=== PATIENT | female | born 2000 | race Caucasian/White ===

== ENCOUNTER 2023-11-16 11:22 | Emergency (ER) | payer OTHER, SELFPAY ==
[2023-11-16] VITALS (7 sets, daily range): BP systolic 99–142; BP diastolic 72–94; BMI 29.2
--- NOTE | 2023-11-16 12:02 | EDRN ---
this RN placed PIV and lola and sent lab work, pt placed on monitor in the hallway, Sp02 96%, HR 110, the pt states that she has heart palpitations and SOB while resting, no s/s of distress noted by this RN, the pt is resting in [place] 1 in stretcher
in the lowest position, side rails up x2, HOB elevated, this RN is frequently checking the pt
[2023-11-16 12:05] LABS: % Basophils 0.6 % (0-2); % Eosinophils 0.9 % (0-6); % Immature Granulocytes 0.3 % (0-0.5); % Lymphocytes 16.7 % (20.5-51.1); % Monocytes 7.5 % (1.7-9.3); Absolute Basophils 0.1 10^3/uL (0-0.2); Absolute Eosinophils 0.1 10^3/uL (0-0.7); Absolute Lymphocytes 1.4 10^3/uL (1.2-3.4); Absolute Monocytes 0.7 10^3/uL (0.1-0.6); Absolute Neutrophils 6.4 10^3/uL (1.4-6.5); Hematocrit 37.3 % (37.0-47.0); Hemoglobin 13.5 g/dL (12.0-16.0); Mean Corp Hgb Conc. 36.2 g/dL (33.0-37.0); Mean Corpuscular Hgb 30.1 pg (27.0-31.0); Mean Corpuscular Volume 83.1 fL (81.0-99.0); Mean Platelet Volume 8.9 fL (7.4-10.4); Nucleated Red Blood Cells % 0 %; Platelet Count 410 10^3/uL (130-400); Red Blood Cell Count 4.49 10^6/uL (4.20-5.40); Red Cell Dist. Width 12.3 % (11.5-14.5); White Blood Cell Count 8.6 10^3/uL (4.8-10.8)
[2023-11-16 12:47] LABS: ALT (SGPT) 36 U/L (0-35); AST (SGOT) 37 U/L (14-36); Albumin 4.6 g/dl (3.5-5.0); Alkaline Phosphatase 89 U/L (38-126); Blood Urea Nitrogen 5 mg/dl (7-17); Calcium 9.5 mg/dl (8.4-10.2); Carbon Dioxide 27 mmol/L (22-30); Chloride 102 mmol/L (98-107); Estimated Creatinine Clearance 108 ml/min; Glucose 97 mg/dl (70-99); Potassium 4.2 mmol/L (3.5-5.1); Sodium 136 mmol/L (135-145); Total Bilirubin 0.5 mg/dl (0.2-1.3); Total Protein 7.6 g/dl (6.3-8.2); eGFR > 60.00
[2023-11-16 12:58] LABS: Troponin I < 0.012 ng/ml
--- NOTE | 2023-11-16 13:18 | EDRN ---
verbal report given to Cathy RN, pt placed on monitor, VS WNL, the pt reports 'I see stars and don't feel very well', this RN notified Marie Pinto MARKET DEVELOPMENT MANAGER
[2023-11-16 13:44] LABS: HCG, Serum Qualitative Screen Negative
--- NOTE | 2023-11-16 14:05 | ED.GENMED ---
History of Present Illness
General
Chief Complaint: Abnormal Lab Value
Source: patient
Exam Limitations: none
Time Seen by Provider: 11/16/23 12:02
Nursing documentation reviewed up to this point in time: agreed with
Travel History
Have you had any contact with someone who has COVID-19?: No
Do you have any symptoms of coronavirus? Fever > 100 degrees, chills, cough, shortness of breath, sore throat, loss of taste or smell, muscle aches, or headache?: Yes
Symptoms:: shortness of breath
History of Present Illness
History of Present Illness:
23-year-old female who trip to [place] on 11/07 and back on 11/12. During that period, she developed a sore throat, cough which was productive, runny nose and shortness of breath. Presents stating the left side chest feels 'tight.'
She saw her PCP, NIURKA Healy earlier today, blood work was ordered and he called her back to notify her that her D-dimer was elevated.
Currently she has mild chest tightness, has been SOB with exertion, She has hx asthma and has used her nebulizer and Albuterol inhaler with not much relief.
She does take oral contraceptives.
Past History
Past History
ED Past Medical History: Asthma, GERD, Hypercholesterolemia, Psychiatric (Anxiety) and Other (Lactose intolerant, seasonal allergies, Ovarian cyst, UTI, Concussion, Pre-Cancerous polyps)
ED Past Surgical History: Tonsilectomy (and adenoids, ) and Other (Breast reduction)
Social History
Tobacco: Non-smoker
Alcohol: Occasional
Drug: None
Personal: Single
Living: with family
Employment: Student
Family History
Family History: Other (No history of inflammatory bowel disease)
Review of Systems
Review of Systems
Allergies reviewed?: Yes
All Other Systems: ROS reviewed and negative except as documented in HPI and ROS
Constitutional: Denies fever
Respiratory: Reports trouble breathing
Cardiac: Reports chest pain; Denies diaphoresis, palpitations or syncope
ABD/GI: Denies abdominal pain, nausea, vomiting or diarrhea
: Denies dysuria, frequency or difficulty voiding
Musculoskeletal: Reports no symptoms
Skin: Reports no symptoms
Neurological: Reports no symptoms
Phy Exam
Physical Exam
Physical Exam:
GENERAL: No acute distress. A&Ox3.
CONSTITUTIONAL: Afebrile.
EYES: Clear, conjunctivae normal
ENMT: moist mucus membranes, Pharynx nl
RESPIRATORY: Regular respirations, nonlabored, lungs clear. Pulse ox 98% room air
CARDIOVASCULAR: Regular rate and rhythm, no murmurs, no rubs. Mildly tachycardic at 100-1 10
GI: Soft, nontender
MUSCULOSKELETAL: Moves with ease. Well perfused.
SKIN: Warm, dry, pink
PSYCH: Normal mood and affect. Well kept, interactive and appropriate
NEUROLOGIC: Awake, alert and oriented. No focal neurological deficits
Course
Orders/Labs/Results
Orders:
Orders
11/16/23 11:54
Complete Blood Count/With Diff Urgent
Comprehensive Metabolic Panel Urgent
HCG, Serum Qualitative Screen Urgent
Comment: ADD ON
Troponin I Urgent
11/16/23 12:04
CT Chest Pe Study Urgent
Comment:
Reason For Exam: SOB, elevated dimer
11/16/23 12:49
Add On- LAB Urgent
Tests Added?: Serum HCG Qualitative
11/16/23 14:38
Heparin 4,900 units IV NOW STA
Pharmacy Request to Place See Dose Instructions PO NOW STA
Discontinue all Active Warfarin orders?: Yes
Nursing to Place Non Medication Order As Directed
Physician Order: PTT 6 hours after initial start of Heparin infusion
11/16/23 14:45
Heparin 93124 Units/250 ml 25,000 units in 250 ml IV PER PROTOCOL
Weight to be used for heparin protocol in kilograms (kg):: 61.235
Protocol:: DVT/PE
PTT Goal Range to be used:: PTT 73 to 111 seconds
Order type:: Initial
INITIAL Infusion Dose (UNITS/KG/hr) & then follow protocol:: 18 units/kg/hr
Infusion Dose in UNITS/hr & then follow protocol (UNITS/hr):: 1,100
INFUSION RATE in mL/hr & then follow protocol (mL/hr):: 11
For DVT/PE algorithm, re-bolus for low PTT?: No
PTT less than or equal to 64 seconds:: No Re-bolus. Increase by 200 units/hr (+ 2mL/hr)
PTT 64.1 to 72.9 seconds:: No Re-bolus. Increase by 100 units/hr (+ 1mL/hr)
PTT 73 to 111 seconds:: Target Range. No change in rate.
PTT 111.1 to 130.9 seconds:: Decrease rate by 100 units/hr (- 1 mL/hr)
PTT 131 to 199.9 seconds:: HOLD for 1 hr. Then decrease by 200 units/hr (- 2mL/hr)
PTT greater than or equal to 200 seconds:: HOLD for 2 hrs & Notify Provider. Then decrease by 200 units/hr
(- 2mL/hr)
Lab follow-up:: Each change, PTT q6h until 2 consecutive are therapeutic. Then
PTT daily.
11/16/23 15:[address] See Dose Instructions IV DIRECTED
11/16/23 15:14
US Periph Venous LOWER Ext Marcos Urgent
Comment:
Reason For Exam: elevated dimer, had cramps, PE study neg
11/16/23 15:15
COVID-19 Antigen Urgent
Source: Nasal Swab
11/16/23 16:23
Albuterol Nebs [Ventolin Nebules] 2.5 mg INH R NOW STA
11/16/23 17:05
Dexamethasone Sod Phosphate [Decadron] 10 mg IV NOW STA
Abnormal Lab Results
11/16/23
11:54
Plt Count 410 H 10^3/uL
(130-400)
Absolute Monos (auto) 0.7 H 10^3/uL
(0.1-0.6)
Lymphocytes % 16.7 L %
(20.5-51.1)
BUN 5 L mg/dl
(7-17)
Creatinine 0.5 L mg/dL
(0.6-1.0)
AST 37 H U/L
(14-36)
ALT 36 H U/L
(0-35)
11/16/23 11:54
11/16/23 11:54
Vital Signs
Initial and Last Documented VS:
Initial Vital Signs
Temp Pulse Resp BP Pulse Ox
98.7 F 111 18 142/94 97
11/16/23 11:31 11/16/23 11:31 11/16/23 11:31 11/16/23 11:31 11/16/23 11:31
Last Documented Vital Signs
Temp Pulse Resp BP Pulse Ox
99.4 F 107 16 135/81 98
11/16/23 17:22 11/16/23 17:22 11/16/23 17:22 11/16/23 17:22 11/16/23 17:22
Balancing Machine Operator consulted with Physician
Balancing Machine Operator consulted with physician?: Yes
Name of Physician Consulted: No
MDM/Problems Addressed
Differential Diagnosis Includes:
PE, COVID, viral URI, asthma exacerbation
MDM/Problems Addressed:
23-year-old female w h/o asthma, GERD, who trip to [place] on 11/07 and back on 11/12. During that period, she developed a sore throat, cough which was productive, runny nose and shortness of breath. Presents stating the left side of her chest feels
'tight.'
She did have a '[place] Horse' doesn't remember which leg, on 11/08. She attributed it to walking around [place]
She saw her PCP, NIURKA Healy earlier today, blood work was ordered and he called her back to notify her that her D-dimer was elevated.
Currently she has mild chest tightness, has been SOB with exe She has hx asthma and has used her nebulizer and Albuterol inhaler with not much relief.
She does take oral contraceptives.
D dimer elevated to 1.24 earlier today as out pt.
11/16/2023 1433 PM
Patient remained stable
CBC normal
CMP normal
Troponin normal
11/16/2023 1436 PM
Patient just returned from CT scan
11/16/2023 1509 PM
CAT scan radiology report read, IMPRESSION:
No evidence of central pulmonary embolism.
Patient has not used her albuterol recently and is requesting a nebulization treatment. Ordered.
Since patient did have a leg cramp for about a day last week, she is unsure which leg, and her dimer is elevated I will do bilateral ultrasound to look for DVT
11/16/2023 1651 PM
Ultrasound showing no DVT
Unclear cause of elevated dimer
HCG neg.
Pt is stable for discharge, does not want her neb tx as she is anxious to go home. This is reasonable as lungs are CTA
Rx for short burst steroids sent to her pharmacy
*Critical Care Note
Total Time (30-74mins, 75-104mins- exclusive of procedures): Not Applicable
ED Attending Note
-
Portions of this chart may have been created with voice recognition software.� Occasional wrong word or��sound alike� substitutions may have occurred due to the inherent limitations of voice recognition software.
Discharge Plan
Departure
Patient Disposition: Home (Routine Discharge)
Date of Disposition: 11/16/23
Time of Disposition: 17:05
Patient with high blood pressure during this ER visit?: No
Condition: Good
Covid-19: Negative COVID-19
Discharge Problem:
Viral URI, Acute costochondritis
Instructions: Viral Upper Respiratory Infection, Adult (DC), Costochondritis (DC)
Prescriptions:
New
prednisone 20 mg tablet
40 mg PO DAILY Qty: 6 0RF
No Action
paroxetine HCl 20 MG tablet
20 mg PO DAILY
famotidine [Acid Controller] 20 MG tablet
10 mg PO DAILYPRN PRN (Reason: acid reflux)
lorazepam 0.5 MG tablet
0.5 mg PO DAILYPRN PRN (Reason: Anxiety)
norethindrone-e.estradiol-iron [Junel FE 1.5/30 (28)] 1.5 mg-30 mcg (21)/75 mg (7) Tablet
1 tab PO DAILY
esomeprazole magnesium 40 mg Capsule,Delayed Release(Dr/Ec)
40 mg PO DAILY
fluticasone propionate [Flovent HFA] 44 mcg/actuation Hfa Aerosol Inhaler
1 puff INHALATION R BIDPRN PRN (Reason: SOB)
albuterol sulfate 2.5 mg /3 mL (0.083 %) Solution For Nebulization
2.5 mg INHALATION R BIDPRN PRN (Reason: sob)
Referrals:
Ariel Healy CRNP [Family Provider] - Follow up in 1 week
Activity Restrictions/Additional Instructions:
As we discussed, chest CT is negative for pulmonary embolus, leg ultrasounds negative for DVT, lab work shows nothing worrisome
I sent a prescription to your pharmacy for prednisone 40 mg a day for 3 days. Start it tomorrow as you were given a dose of steroid Decadron 10 mg here today.
You may take Tylenol or ibuprofen for your chest pain to see if it helps.
See your primary provider next week if you are not significantly improved by then
Interventions
Interventions:
*Risk Screen - Suicide Last Done: 11/16/23 11:31
*General Assessment Last Done: 11/16/23 11:47
*Neglect/Abuse Screening Last Done: 11/16/23 11:31
ED- Fall Risk Assessment Last Done: 11/16/23 11:47
*ED COVID-19 Vaccine History Last Done: 11/16/23 11:31
*Nursing Disposition Last Done: 11/16/23 17:22
Discharge Date and Time
Discharge Date/Time: 11/16/23 17:23
[2023-11-16 15:38] LABS: COVID-19 Antigen Negative (Negative)
[2023-11-16] MEDS: DECADRON 10 MG IV (17:10)
== END 2023-11-16 17:23 | disposition home or self-care (01) ==
LOC: EMR 11:22
PROVIDERS: Registered Nurse; EMERGENCY PHYSICIAN Emergency Medicine; FAMILY PHYSICIAN Nurse Practitioner Family
DX: J06.9 Acute upper respiratory infection, unspecified (principal); M94.0 Chondrocostal junction syndrome [Tietze]; J45.901 Unspecified asthma with (acute) exacerbation; K21.9 Gastro-esophageal reflux disease without esophagitis; E78.00 Pure hypercholesterolemia, unspecified; F41.9 Anxiety disorder, unspecified; Z87.440 Personal history of urinary (tract) infections
CPT/HCPCS: 99284; 96374; 36415; 71046; 71275; 80048; 80053; 84484; 84703; 85025; 85379; 87811; 93970; Q9967

== ENCOUNTER → 2025-07-03 14:08 | Outpatient (REF) | payer OTHER, SELFPAY | LOC: HWRAD 14:08 | PROVIDERS: ATTENDING PHYSICIAN Nurse Practitioner Family | DX: M54.2 Cervicalgia (principal); M25.512 Pain in left shoulder | CPT/HCPCS: 72050; 73030 ==

== ENCOUNTER → 2025-07-24 10:30 | Outpatient (REF) | payer OTHER, SELFPAY | LOC: PAVMRI 10:30 | PROVIDERS: ATTENDING PHYSICIAN Physician Assistant; FAMILY PHYSICIAN Nurse Practitioner Family | DX: M54.12 Radiculopathy, cervical region (principal) | CPT/HCPCS: 72141 ==